=== PATIENT | male | born 1990 | race African-American/Black ===

== ENCOUNTER 2019-01-31 10:38 | Emergency (ER) | payer OTHER, MEDICAID ==
[~2019-01-31] VITALS: Ht 182.9 cm; Wt 58.0 kg
[2019-01-31] MEDS ORDERED: HYDROCODONE/ACETAMINOPHEN 5/325MG TABLET PO ONE (11:30)
[2019-01-31] MEDS ORDERED: TETANUS, DIPHTHERIA, PERTUSSIS VAC/PF 0.5ML (>7YR OLD) IM ONE (11:30)
[2019-01-31] MEDS ORDERED: CEFAZOLIN SODIUM 1000MG/VIAL IM ONE (11:30)
[2019-01-31 15:46] VITALS: BP 119/72
== END 2019-01-31 19:23 | disposition short-term general hospital (02) ==
LOC: ER 10:56
DX: S66.821A Laceration of other specified muscles, fascia and tendons at wrist and hand level, right hand, initial encounter (principal); W25.XXXA Contact with sharp glass, initial encounter; Y93.89 Activity, other specified; Y92.89 Other specified places as the place of occurrence of the external cause; Y99.8 Other external cause status
CPT/HCPCS: 73090; 73100; 90471; 90715; 96372; 99285; J0690